=== PATIENT | female | born 1955 | race Caucasian/White ===

== ENCOUNTER → 2016-07-19 | Outpatient (CLI) | payer OTHER | LOC: BRMIMAGING 14:10 | DX: Z12.31 Encounter for screening mammogram for malignant neoplasm of breast (principal); Z80.3 Family history of malignant neoplasm of breast | CPT/HCPCS: G0202 ==

== ENCOUNTER → 2016-08-01 | Outpatient (CLI) | payer OTHER | LOC: BMCIMAGING 09:54 | DX: Z12.39 Encounter for other screening for malignant neoplasm of breast (principal); N60.19 Diffuse cystic mastopathy of unspecified breast | CPT/HCPCS: G0206 ==